=== PATIENT | male | born 1975 | race Caucasian/White ===

== ENCOUNTER 2019-04-01 18:37 | Emergency (ER) | payer BC ==
[2019-04-01] MEDS ORDERED: Mupirocin 2% OINT* TUBE TOPICAL ONE (19:02)
[2019-04-01] MEDS ORDERED: Cephalexin CAP* 500 MG PO ONE (19:03)
[2019-04-01] MEDS ORDERED: Tetan/Diph/Pertus SYR(Tdap)* 0.5 ML SYR(BOOSTRIX) use SYR contains LATEX IM ONE (19:04)
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
[2019-04-01 19:14] VITALS: BP 124/77
== END 2019-04-01 19:37 | disposition home or self-care (01) ==
LOC: UCEAST 18:37
DX: S91.011A Laceration without foreign body, right ankle, initial encounter (principal); L03.115 Cellulitis of right lower limb; V28.3XXA Person boarding or alighting a motorcycle injured in noncollision transport accident, initial encounter; Y92.9 Unspecified place or not applicable
CPT/HCPCS: 90471; 90715; 99213; A9270-GY; G0463